=== PATIENT | female | born 1940 | race Caucasian/White ===

== ENCOUNTER 2017-01-02 10:45 | Day surgery (SDC) | payer OTHER, BC ==
[~2017-01-02] VITALS: Ht 162.6 cm; Wt 91.0 kg
[2017-01-02] MEDS ORDERED: DECADRON4 MG PO (12:14)
[2017-01-02] MEDS ORDERED: TUMS500 MG PO (12:15)
[2017-01-02] MEDS ORDERED: PROBIOTIC1 EAC5 PO (12:15)
[2017-01-02] MEDS ORDERED: ALLOPURINOL100 MG PO (12:19)
[2017-01-02] MEDS ORDERED: ZOFRAN ODT8 MG PO (12:19)
[2017-01-02] MEDS ORDERED: LIDOCAINE-PRIL1 EACH TP (12:21)
[2017-01-02] MEDS ORDERED: VALACYCLOVIR500 MG PO (12:21)
[2017-01-02] MEDS ORDERED: LOTREL 10/21 CAPSULE PO (12:22)
[2017-01-02] MEDS ORDERED: VITAMIN B125000 MCG PO (12:23)
[2017-01-02] MEDS ORDERED: VITAMIN D35000 UNIT PO (12:24)
[2017-01-02] MEDS ORDERED: VELCADE1 MG/ML IV (12:28)
== END 2017-01-02 14:56 | disposition home or self-care (01) ==
LOC: CATH 10:45
DX: N18.6 End stage renal disease (principal); C90.00 Multiple myeloma not having achieved remission; Z99.2 Dependence on renal dialysis; Z92.21 Personal history of antineoplastic chemotherapy
CPT/HCPCS: C1750; C1894; J1644; J2250; J3010; S0020

== ENCOUNTER 2017-01-25 05:33 | Day surgery (SDC) | payer OTHER, BC ==
[~2017-01-25] VITALS: Ht 162.6 cm; Wt 86.0 kg
[~2017-01-25 05:33] MED LIST: ALLOPURINOL100 MG PO; AVELOX400 MG PO; DECADRON4 MG PO; DELTASONE20 M1 PO; LIDOCAINE-PRIL1 EACH TP; LOTREL 10/21 CAPSULE PO; MEDROL4 MG PO; PROBIOTIC1 EAC5 PO; REVLIMID25 MG PO; TUMS500 MG PO; VALACYCLOVIR500 MG PO; VELCADE1 MG/ML IV; VITAMIN B125000 MCG PO; VITAMIN D35000 UNIT PO; ZOFRAN ODT8 MG PO
[2017-01-25 06:46] VITALS: BP 139/63
[2017-01-25 07:27] LABS: HEMATOCRIT 37.4 % (36.0-46.0); MCH 30.9 PG (29.0-34.0); MCHC 30.7 G/DL (30.0-36.0); MCV 100.5 FL (83-99); NRBC (%) 0.4 /100 WBC (0-0); PLATELET COUNT 102 K/uL (156-360); RBC DIS.WIDTH-SD 65.4 % (39-53); RED BLOOD COUNT 3.72 M/uL (3.80-5.20); WHITE BLOOD COUNT 5.2 K/uL (4.1-10.2)
[2017-01-25 07:39] LABS: CHLORIDE 108 mEq/L (99-109)
[2017-01-25 07:40] LABS: POTASSIUM 4.7 mEq/L (3.7-5.4); SODIUM 140 mEq/L (136-147)
[2017-01-25 07:41] LABS: GLUCOSE 79 mg/dL (70-99)
[2017-01-25 07:43] LABS: ANION GAP 13 MEQ/L (2-14)
[2017-01-25 07:45] LABS: GFR ESTIMATE (CALCULATED) 12 mL/min/
[2017-01-25 07:46] LABS: UREA NITROGEN (BUN) 29 mg/dL (9-23)
[2017-01-25 08:29] LABS: METH RESISTANT S AUREUS PCR NEGATIVE (NEGATIVE)
[2017-01-25 08:37] LABS: PROBE CHECK PASS; SPECIMEN PROCESSING CONTROL PASS
[2017-01-25 09:50] VITALS: BP 138/70
[2017-01-25 10:21] VITALS: BP 129/65
== END 2017-01-25 10:44 | disposition home or self-care (01) ==
LOC: SDC 05:33
PROVIDERS: Surgery
DX: I12.0 Hypertensive chronic kidney disease with stage 5 chronic kidney disease or end stage renal disease (principal); N18.6 End stage renal disease; Z99.2 Dependence on renal dialysis; Z87.891 Personal history of nicotine dependence; Z88.0 Allergy status to penicillin; Z82.49 Family history of ischemic heart disease and other diseases of the circulatory system
CPT/HCPCS: 80048; 85027; 87641; J0330; J1644; J2250; J2405; J2720; J3010

== ENCOUNTER → 2017-03-29 | Outpatient (CLI) | payer OTHER, BC | END | disposition home or self-care (01) | LOC: AMB 09:14 | PROC: 02PYX3Z Removal of Infusion Device from Great Vessel, External Approach (ICD-10-PCS; principal; 2017-03-29) | DX: Z45.2 Encounter for adjustment and management of vascular access device (principal); N18.6 End stage renal disease; Z99.2 Dependence on renal dialysis ==

== ENCOUNTER → 2017-07-11 | Outpatient (CLI) | payer MEDICARE, BC ==
[~2017-07-11] MED LIST changes: +NORCO 5/3251 TABLET PO; +RANITIDINE HCL150 M1 PO
== END | disposition home or self-care (01) ==
LOC: CDC 09:44
DX: Z01.810 Encounter for preprocedural cardiovascular examination (principal); K80.50 Calculus of bile duct without cholangitis or cholecystitis without obstruction; K80.10 Calculus of gallbladder with chronic cholecystitis without obstruction; I49.1 Atrial premature depolarization
CPT/HCPCS: 93000

== ENCOUNTER 2017-07-16 05:42 | Day surgery (SDC) | payer OTHER, BC ==
[~2017-07-16] VITALS: Ht 162.6 cm; Wt 85.5 kg
[~2017-07-16 05:42] MED LIST changes: -NORCO 5/3251 TABLET PO
[2017-07-16 06:41] VITALS: BP 160/81
[2017-07-16 07:24] LABS: ANION GAP 10 MEQ/L (2-14); CHLORIDE 111 MEQ/L (99-109); POTASSIUM 5.3 MEQ/L (3.7-5.4); SAMPLE HEMOLYSIS CHECK 0; SAMPLE ICTERIC CHECK 0; SAMPLE LIPEMIA CHECK 0; SODIUM 140 MEQ/L (136-147)
[2017-07-16 07:29] LABS: GFR ESTIMATE (CALCULATED) 10 mL/min/; GLUCOSE 110 mg/dL (70-99); UREA NITROGEN (BUN) 88 mg/dL (9-23)
[2017-07-16] MEDS ORDERED: NORCO 5/3251 TABLET PO ×2 (13:56→13:59)
[2017-07-16 14:59] VITALS: BP 178/78
[2017-07-16 15:58] VITALS: BP 130/70
== END 2017-07-16 16:05 | disposition home or self-care (01) ==
LOC: SDC 05:42
PROVIDERS: Surgery
PROC: 0FT44ZZ Resection of Gallbladder, Percutaneous Endoscopic Approach (ICD-10-PCS; principal; 2017-07-16)
DX: K80.10 Calculus of gallbladder with chronic cholecystitis without obstruction (principal); C90.00 Multiple myeloma not having achieved remission; I12.0 Hypertensive chronic kidney disease with stage 5 chronic kidney disease or end stage renal disease; N18.6 End stage renal disease; Z99.2 Dependence on renal dialysis; R13.10 Dysphagia, unspecified; E66.9 Obesity, unspecified; Z68.32 Body mass index [BMI] 32.0-32.9, adult; R94.31 Abnormal electrocardiogram [ECG] [EKG]; Z87.891 Personal history of nicotine dependence; Z88.0 Allergy status to penicillin
CPT/HCPCS: 80048; 88304; J0131; J0330; J1100; J2001; J2250; J2405; J2710; J3010; J3475; Q0175